=== PATIENT | female | born 1945 | race Caucasian/White ===

== ENCOUNTER 2023-05-02 02:05 | Day surgery (SDC) | payer MEDICARE, OTHER, SELFPAY ==
--- NOTE | 2023-04-25 14:22 | PC.NURSE ---
Report to the Outpatient Waiting Room, entrance under the green pavilion located off [facility], at time __1000 on date _05/02/23 . Planned Procedure Time: _1200 . Time changes happen often and if your time is changed the preop area will call you the afternoon before. - You and your visitor will be asked to self-screen and do not enter if you have any COVID symptoms. - A mask is optional within the hospital at this time. Patients may have clear liquids (water, carbonated beverages, clear teas, apple juice) until 3 hours prior to surgery with a maximum of 20 ounces. - No food from midnight until time of surgery - Infants may have breast milk until 4 hours before surgery, infant formula 6 hours prior to surgery. - Children will be allowed to drink immediately following surgery. If applicable, please bring a bottle or sippy cup to assist with drinking. Juice, water, soda, and popsicles are readily available. For infants on formula, please bring formula the day of surgery. Pacifiers are allowed. Take the following medications with a SIP of water the morning of surgery: ____LEVOTHYROXINE DO NOT STOP ANY OF YOUR OTHER PRESCRIPTION MEDICATIONS PRIOR TO SURGERY ?EXCEPT THE FOLLOWING Medications to discontinue per physician ALL VITAMINS AND SUPPLEMENTS 3 DAYS PRE OP.LAST DOSE 04/28/23 Please no make-up, nail italian, hairspray, perfume, deodorant, or body powder the day of surgery. No jewelry (including any body piercings) or valuables the day of surgery, leave them at home. Please take a shower or bath the night before, or the morning of, surgery with an antibacterial soap. Wear comfortable, loose fitting clothing. Children are encouraged to wear pajamas. - Jewelry must be removed prior to entering the operating room. Rings and piercings that are not removed may be cut off. - The hospital will not accept responsibility for valuables. - Please leave all valuables, including medications, at home the day of surgery. If you are going home after surgery, a licensed dumpster driver must drive you home. - NO public transportation without another adult if you receive anesthesia. - We recommend that an adult stay with you for 24 hours following discharge. - We also recommend that you do not drive, make important decision, drink alcoholic beverages, or take any drugs that were not prescribed by your health care provider for at least 24 hours after your discharge time. For Pediatric surgeries, we recommend two adults accompany the child home. Follow any additional instructions given to you from your surgeon. If you or anyone in your household have experienced Covid symptoms in the past week, please notify your surgeon or the nurse liaison at the phone number below for possible testing. Telephone instructions given to __PATIENT and asked if any additional questions and then verbalized understanding. Patient advised to call surgeon office or pre surgery nurse liaison [phone] if any additional questions.
[2023-04-25 14:28] VITALS: BMI 22.8
--- NOTE | 2023-05-02 07:33 | WPDHPUPDATE1 ---
History and Physical Update Update Date/Time: 05/02/23 07:33 History and Physical has been reviewed, including an updated exam of the patient. There are NO changes in the patient's condition. Risks, benefits, and alternatives have been discussed and questions answered. Patient agrees to proceed with procedure.
--- NOTE | 2023-05-02 07:33 | PM.HPGS ---
History of Present Illness History of Present Illness Consent: Risks, benefits, and alternatives have been discussed and questions answered. Patient agrees to proceed with procedure. Chief complaint: Post Meopausal Bleeding Narrative: Monique Sanches is a 78 year old female with an episode of postmenopausal bleeding. Pelvic ultrasound revealed a thickened endometrium. It was recommended to proceed with D&C hysteroscopy for further evaluation. Risks of infection, bleeding, perforation, and possible pathology are reviewed. Patient voices understanding and agrees to proceed. Review of Systems Review of Systems: not repeated day of surgery; patient states no changes in status All systems reviewed & are unremarkable except as noted in HPI and below (History of present) [facility] Past Medical History Medical History (Updated 05/02/23 @ 07:37 by Marina Hair MD) Acid reflux Anemia Autoimmune disorder Breast cancer Colon cancer Disorder of thyroid History of blood transfusion History of miscarriage Lichen planopilaris Osteopenia Surgical History Surgical History H/O dilation and curettage H/O mastectomy History of appendectomy History of colon surgery History of colposcopy Family History Family History Sibling Carcinoma of colon Diabetes mellitus Father Cerebrovascular accident Social History Social History Smoking status: Never smoker Alcohol intake: current Drinks per week: 2 Alcohol use details: ONE DRINK ONCE A MONTH Substance use: never Living arrangements: alone Spiritual care concerns: No Meds Home Medications and Allergies Home Medications Medication Instructions Recorded Confirmed Type cholecalciferol (vitamin D3) 25 25 mcg PO DAILY 07/18/20 04/25/23 History mcg (1,000 unit) capsule famotidine 20 mg tablet (Pepcid) 20 mg PO BID 07/18/20 04/25/23 History anastrozole 1 mg tablet 1 mg PO DAILY 04/29/21 04/25/23 History ascorbic acid (vitamin C) 100 mg 100 mg PO DAILY 04/25/23 04/25/23 History tablet calcium citrate 250 mg PO BID 04/25/23 04/25/23 History ibandronate 150 mg tablet 150 mg PO MONTHLY 04/25/23 04/25/23 History levothyroxine 75 mcg tablet 75 mcg PO DAILY 04/25/23 04/25/23 History (Synthroid) zinc 15 mg tablet 15 mg PO DAILY 04/25/23 04/25/23 History Allergies Allergy/AdvReac Type Severity Reaction Status Date / Time adhesive tape Allergy unknown Verified 04/25/23 14:08 amoxicillin [From Augmentin] Allergy upset Verified 04/25/23 14:08 stomach clavulanic acid Allergy upset Verified 04/25/23 14:08 [From Augmentin] stomach codeine [From Guaifen-C] Allergy Insomnia Verified 04/25/23 14:08 cyclobenzaprine Allergy insomnia Verified 04/25/23 14:08 [From Flexeril] gabapentin [From Neurontin] Allergy Unknown Verified 04/25/23 14:08 guaifenesin [From Guaifen-C] Allergy Insomnia Verified 04/25/23 14:08 Exam Const: General: healthy appearing and alert Orientation/consciousness: patient oriented x3 Resp: Effort & Inspection: normal respiratory effort GI: GI Palp: Yes Soft to palpation, No Tenderness to palpation present (GI) and No Palpable mass present : External Female Exam: normal external appearance (initial exam after the bleeding episode bruised area on right labia ) Speculum Exam - Vagina: normal vaginal discharge and vagina atrophic (Severe) Speculum Exam - Cervix: normal appearance of the cervix Bimanual exam- vagina & uterus: uterine size normal and consistency normal Bimanual Exam- Adnexa, other: normal adnexae and No adnexal tenderness Neuro: General: patient oriented x3 Assessment and Plan Assessment and plan (1) Post-menopausal bleeding: Code(s): N95.0 - Postmenopausal bleeding Status: Acute Assessment and
[2023-05-02 10:30] VITALS: BP 179/83; PULSE 86; RESP 16; TEMP 37; O2SAT 98
--- NOTE | 2023-05-02 10:49 | WPDANESEPPF ---
Anes - Initial Pre Proc Eval Procedure: Operation Date: 05/02/23 12:00 Proposed Procedures p Hysteroscopy Dilation and Curettage - Marina Hair MD Date/Time: 05/02/23 10:49 Surgeon: Marina Hair MD Pre Op Diagnosis: Post Menopausal Bleeding Patient Data Age: 78 Gender: F Height: 1.65 m Weight: 62.15 kg Allergies Allergy/AdvReac Type Severity Reaction Status Date / Time adhesive tape Allergy unknown Verified 04/25/23 14:08 amoxicillin [From Augmentin] Allergy upset Verified 04/25/23 14:08 stomach clavulanic acid Allergy upset Verified 04/25/23 14:08 [From Augmentin] stomach codeine [From Guaifen-C] Allergy Insomnia Verified 04/25/23 14:08 cyclobenzaprine Allergy insomnia Verified 04/25/23 14:08 [From Flexeril] gabapentin [From Neurontin] Allergy Unknown Verified 04/25/23 14:08 guaifenesin [From Guaifen-C] Allergy Insomnia Verified 04/25/23 14:08 Home Medications Medication Instructions Recorded Confirmed Type cholecalciferol (vitamin D3) 25 25 mcg PO DAILY 07/18/20 04/25/23 History mcg (1,000 unit) capsule famotidine 20 mg tablet (Pepcid) 20 mg PO BID 07/18/20 04/25/23 History anastrozole 1 mg tablet 1 mg PO DAILY 04/29/21 04/25/23 History ascorbic acid (vitamin C) 100 mg 100 mg PO DAILY 04/25/23 04/25/23 History tablet calcium citrate 250 mg PO BID 04/25/23 04/25/23 History ibandronate 150 mg tablet 150 mg PO MONTHLY 04/25/23 04/25/23 History levothyroxine 75 mcg tablet 75 mcg PO DAILY 04/25/23 04/25/23 History (Synthroid) zinc 15 mg tablet 15 mg PO DAILY 04/25/23 04/25/23 History Patient hx anesthesia problems: post op nausea/vomiting Family hx anesthesia problems: none Results Review: All pre-operative results and documents have been reviewed as part of the pre-operative evaluation. [facility] Past Medical History Medical History (Updated 05/02/23 @ 07:37 by Marina Hair MD) Acid reflux Anemia Autoimmune disorder Breast cancer Colon cancer Disorder of thyroid History of blood transfusion History of miscarriage Lichen planopilaris Osteopenia Surgical History Surgical History H/O dilation and curettage H/O mastectomy History of appendectomy History of colon surgery History of colposcopy Family History Family History Sibling Carcinoma of colon Diabetes mellitus Father Cerebrovascular accident Social History Social History Smoking status: Never smoker Alcohol intake: current Drinks per week: 2 Alcohol use details: ONE DRINK ONCE A MONTH Substance use: never Living arrangements: alone Spiritual care concerns: No Anes - Eval Final PreProcedure Day of Procedure 05/02/23 10:49 Patient weight: normal Heart: regular rate and rhythm Lungs: clear to auscultation Airway: Mallampati scale class II Neurological: alert and oriented Last oral intake: >/= 8 hours ASA classification: III Emergent: no Anesthetic plan: proceed Anesthesia type and monitoring: general GIVS and standard monitoring Results Review: All pre-operative results and documents have been reviewed as part of the pre-operative evaluation. Informed Consent: The patient's anesthetic plan and its attendant risks and benefits were discussed with the patient/family/POA. Questions were solicited and answers provided to the satisfaction of the patient/family/POA.
[2023-05-02] MEDS: LACTATED RINGERS 1,000 ML 30 ML IV CONT (11:00)
[2023-05-02] MEDS: ACETAMINOPHEN 500 MG TABLET 1000 MG PO (11:00)
[2023-05-02 12:19] VITALS: BP 129/65; PULSE 64; RESP 20
--- NOTE | 2023-05-02 12:28 | W.PM.PROC2 ---
Procedure Note - Detailed Date of Procedure 05/02/23 Pre-op Diagnosis Post Menopausal Bleeding Post-op Diagnosis Same Procedure Performed D&C hysteroscopy Surgeon Marina Hair MD Anesthesia MAC Findings cervix is atrophic and stenotic; uterus sounds to 5cm and is severely atrophic; no lesions noted Description of Procedure The patient is taken to the operating room and placed under anesthesia in the dorsal lithotomy position. She was prepped and draped in usual sterile fashion. Sullivan speculum was placed in the vagina and the cervix grasped on the anterior lip with a tenaculum. The internal os is stenotic and the small dilator was used to enter the cavity. The hysteroscope was then placed and with hydro dissection the cavity is able to be entered. No abnormalities are noted therefore the hysteroscope was removed. The 00 sharp curette is used to curette the endometrium until a good uterine cry was noted in all areas. Minimal material was obtained consistent with the visual appearance. All instruments are removed. Sponge, needle, and instrument counts are correct per the OR staff. Patient is awakened from anesthesia and taken to recovery in stable condition. Estimated Blood Loss 5 Drains No Packing No Pathology Yes ( Endometrial curet) Complications No immediate complications Condition Stable Disposition PACU
[2023-05-02 12:45] VITALS: BP 179/61; PULSE 57; RESP 20
[2023-05-02 13:15] VITALS: BP 153/62; PULSE 52; RESP 20
[2023-05-02 13:25] VITALS: BP 156/75; PULSE 51; RESP 20
== END 2023-05-02 13:31 | disposition home or self-care (01) ==
PROVIDERS: PCP Family Medicine; Visit Provider Obstetrics & Gynecology Gynecology
PROC: 0U5B8ZZ Destruction of Endometrium, Via Natural or Artificial Opening Endoscopic (ICD-10-PCS; CPT 58563; principal; 2023-05-02 12:00)
DX: N95.0 Postmenopausal bleeding (principal); Z85.3 Personal history of malignant neoplasm of breast; Z85.038 Personal history of other malignant neoplasm of large intestine; E07.9 Disorder of thyroid, unspecified; K21.9 Gastro-esophageal reflux disease without esophagitis; D89.89 Other specified disorders involving the immune mechanism, not elsewhere classified; Z79.811 Long term (current) use of aromatase inhibitors
CPT/HCPCS: 58558; 88305; A9270; J2704; J3010; J7120